=== PATIENT | female | born 1970 | race Caucasian/White ===

== ENCOUNTER → 2018-02-27 08:33 | Outpatient (CLI) | payer OTHER, SELFPAY ==
[2018-02-27 09:42] LABS: Add Manual Diff / Slide Review NO; Basophils Percent Auto 0.5 % (0-2); Eosinophils Percent Auto 1.7 % (2-4); Hematocrit 39.9 % (36-46); Hemoglobin 13.6 g/dL (12.0-16.0); Mean Corpuscular HGB Conc 34.1 % (30-36); Mean Corpuscular Hemoglobin 31.6 PG (26-34); Mean Corpuscular Volume 92.4 fL (80-100); Monocytes Percent Auto 7.2 % (3-14); Neutrophils Absolute Auto 3000 /uL (3000-5900); Neutrophils Percent Auto 69.6 % (50-75); Platelet Count 261 X10^3/uL (150-400); Red Blood Cell Count 4.32 X10^6/uL (4.0-5.2); White Blood Cell Count 4.3 X10^3/uL (4.5-11.0)
[2018-02-27 09:54] LABS: Alanine Aminotransferase 46 IU/L (9-52); Albumin 4.4 g/dL (3.5-5.0); Albumin Globulin Ratio 1.4 (1.0-2.8); Alkaline Phosphatase 58 U/L (38-126); Aspartate Aminotransferase 29 IU/L (14-36); BUN Creatinine Ratio 7.5 (6-22); Bilirubin Total 0.6 mg/dL (0.2-1.3); Blood Urea Nitrogen 6 mg/dL (7-17); Calcium 9.9 mg/dL (8.4-10.2); Carbon Dioxide 29 mmol/L (22-32); Chloride 103 mmol/L (98-107); Cholesterol 212 mg/dL (140-199); Estimated Glomerular Filt Rate > 60.0 mL/min (>60); Globulin 3.2 g/dL (1.7-4.1); Glucose 99 mg/dL (70-100); HDL Cholesterol 59 mg/dL (40-60); HEMOLYSIS < 15 (0-50); LDL Cholesterol Calculated 136 mg/dL (<100); Potassium 4.3 mmol/L (3.4-5.1); Sodium 142 mmol/L (137-145); Total Protein 7.6 g/dL (6.3-8.2); Triglycerides 86 mg/dL (35-150)
[2018-02-27 10:21] LABS: TSH w/ Reflex to FT4 1.39 uIU/mL (0.47-4.68)
[2018-03-03 20:37] LABS: Estrogen 392.6 pg/mL
== END ==
PROVIDERS: Family Provider Family Medicine; PCP Family Medicine; Visit Provider Family Medicine
DX: E03.9 Hypothyroidism, unspecified (principal); R61 Generalized hyperhidrosis
CPT/HCPCS: 36415; 80053; 80061; 82672; 84443; 85025

== ENCOUNTER → 2018-03-17 16:21 | Outpatient (CLI) | payer OTHER, SELFPAY ==
[2018-03-17 16:55] LABS: Appearance Urine UA CLEAR; Bilirubin Urine UA NEGATIVE (NEGATIVE); Color Urine UA YELLOW; Glucose Urine UA NEGATIVE (Normal); Ketones Urine UA NEGATIVE (NEGATIVE); Leukocyte Esterase Urine UA NEGATIVE (NEGATIVE); Nitrite Urine UA Negative (Negative); Occult Blood Urine UA TRACE-LYSED (Negative); Protein Urine UA NEGATIVE (Negative); Specific Gravity Urine UA <=1.005 (1.000-1.035); Urobilinogen Urine UA 0.2 E.U./dL (0.2); pH Urine UA 5.5 (4.5-8.0)
[2018-03-17 17:15] LABS: Add Manual Diff / Slide Review NO; Basophils Percent Auto 0.6 % (0-2); Eosinophils Percent Auto 1.8 % (2-4); Hematocrit 34.8 % (36-46); Hemoglobin 11.7 g/dL (12.0-16.0); Lymphocytes Percent Auto 21.2 % (25-40); Mean Corpuscular HGB Conc 33.7 % (30-36); Mean Corpuscular Hemoglobin 31.5 PG (26-34); Mean Corpuscular Volume 93.6 fL (80-100); Neutrophils Absolute Auto 4900 /uL (3000-5900); Neutrophils Percent Auto 70.4 % (50-75); Platelet Count 283 X10^3/uL (150-400); Red Blood Cell Count 3.72 X10^6/uL (4.0-5.2); Red Cell Distribution Width 13.2 % (11.6-14.8); White Blood Cell Count 6.9 X10^3/uL (4.5-11.0)
[2018-03-17 17:35] LABS: Alanine Aminotransferase 48 IU/L (9-52); Albumin 4.1 g/dL (3.5-5.0); Albumin Globulin Ratio 1.5 (1.0-2.8); Alkaline Phosphatase 70 U/L (38-126); Aspartate Aminotransferase 22 IU/L (14-36); Bilirubin Total 0.4 mg/dL (0.2-1.3); Blood Urea Nitrogen 8 mg/dL (7-17); Calcium 9.5 mg/dL (8.4-10.2); Carbon Dioxide 29 mmol/L (22-32); Chloride 103 mmol/L (98-107); Estimated Glomerular Filt Rate > 60.0 mL/min (>60); Globulin 2.8 g/dL (1.7-4.1); Glucose 84 mg/dL (70-100); HEMOLYSIS < 15 (0-50); Potassium 4.4 mmol/L (3.4-5.1); Sodium 143 mmol/L (137-145); Total Protein 6.9 g/dL (6.3-8.2)
[2018-03-17 18:01] LABS: Thyroid Stimulating Hormone 3.45 uIU/mL (0.47-4.68)
== END ==
PROVIDERS: Family Provider Family Medicine; PCP Family Medicine; Visit Provider Internal Medicine
DX: R60.0 Localized edema (principal)
CPT/HCPCS: 36415; 80053; 81003; 84443; 85025

== ENCOUNTER → 2018-03-24 16:29 | Outpatient (CLI) | payer OTHER, SELFPAY ==
[2018-03-24 16:44] LABS: Add Manual Diff / Slide Review NO; Basophils Percent Auto 1.2 % (0-2); Eosinophils Percent Auto 1.9 % (2-4); Hemoglobin 12.7 g/dL (12.0-16.0); Lymphocytes Percent Auto 24.7 % (25-40); Mean Corpuscular HGB Conc 33.4 % (30-36); Mean Corpuscular Hemoglobin 31.3 PG (26-34); Monocytes Percent Auto 6.1 % (3-14); Neutrophils Absolute Auto 4400 /uL (3000-5900); Neutrophils Percent Auto 66.1 % (50-75); Platelet Count 276 X10^3/uL (150-400); Red Blood Cell Count 4.05 X10^6/uL (4.0-5.2); Red Cell Distribution Width 13.2 % (11.6-14.8); White Blood Cell Count 6.6 X10^3/uL (4.5-11.0)
[2018-03-24 16:47] LABS: Reticulocyte Count, Percent 1.5 % (1.06-2.63)
[2018-03-24 17:29] LABS: HEMOLYSIS < 15 (0-50); Iron 53 ug/dL (37-170)
[2018-03-24 17:39] LABS: Percent Iron Saturation 12 % (15-50); Total Iron Binding Capacity 454 ug/dL (265-497); Transferrin 367 mg/dL (206-381)
[2018-03-24 18:05] LABS: Ferritin 22.6 ng/mL (6.27-137)
== END ==
PROVIDERS: Family Provider Family Medicine; PCP Family Medicine; Visit Provider Family Medicine
DX: D64.9 Anemia, unspecified (principal)
CPT/HCPCS: 36415; 82728; 83540; 83550; 85025; 85045

== ENCOUNTER → 2018-09-02 17:44 | Outpatient (CLI) | payer OTHER, SELFPAY ==
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
== END ==
PROVIDERS: Family Provider Family Medicine; PCP Student in an Organized Health Care Education/Training Program; Visit Provider Student in an Organized Health Care Education/Training Program
DX: M54.6 Pain in thoracic spine (principal); S39.92XA Unspecified injury of lower back, initial encounter; V89.2XXA Person injured in unspecified motor-vehicle accident, traffic, initial encounter
CPT/HCPCS: 72146

== ENCOUNTER → 2018-09-16 12:42 | Outpatient (CLI) | payer OTHER, SELFPAY | PROVIDERS: Family Provider Family Medicine; PCP Student in an Organized Health Care Education/Training Program; Visit Provider Registered Nurse | DX: R20.0 Anesthesia of skin (principal); R20.2 Paresthesia of skin | CPT/HCPCS: 95885; 95886; 95909 ==

== ENCOUNTER → 2018-10-13 11:36 | Outpatient (CLI) | payer OTHER, SELFPAY ==
--- NOTE | 2018-10-13 11:38 | DI.RAD.S_ITS ---
PROCEDURE: XR KNEE RT 3V INDICATIONS: Right knee pain TECHNIQUE: 3 views of the knee were acquired. COMPARISON: None. FINDINGS: Bones: No fractures or dislocations. No suspicious bony lesions. Degenerative spurring. Mild narrowing of medial and lateral joint spaces. Soft tissues: No joint effusion. Prepatellar soft tissue swelling IMPRESSION: Mild right knee joint degeneration Prepatellar soft tissue swelling Dictated by: Garrett Carolina M.D. on 10/13/2018 at 12:48 Approved by: Garrett Carolina M.D. on 10/13/2018 at 12:52
== END ==
PROVIDERS: PCP Student in an Organized Health Care Education/Training Program; Visit Provider Student in an Organized Health Care Education/Training Program
DX: M25.561 Pain in right knee (principal); M17.11 Unilateral primary osteoarthritis, right knee; M79.89 Other specified soft tissue disorders
CPT/HCPCS: 73562

== ENCOUNTER 2018-11-15 18:04 | Emergency (ER) | payer OTHER, SELFPAY ==
[2018-11-15 18:09] VITALS: BP 194/101; PULSE 95; RESP 20; TEMP 36.8; O2SAT 98; BMI 40.6
--- NOTE | 2018-11-15 18:28 | DI.RAD.S_ITS ---
PROCEDURE: XR CHEST 1V INDICATIONS: chest pain TECHNIQUE: One view of the chest was acquired. COMPARISON: [facility], , CHEST 1 VIEW, 10/24/2016, 17:43. FINDINGS: Surgical changes and devices: None. Lungs and pleura: Lungs are clear. No pleural effusions or pneumothorax. Mediastinum: Mediastinal contours appear normal. Heart size is normal. Bones and chest wall: No suspicious bony lesions. Overlying soft tissues appear unremarkable. IMPRESSION: No acute cardiopulmonary disease. Dictated by: Nhan Ware M.D. on 11/15/2018 at 19:43 Approved by: Nhan Ware M.D. on 11/15/2018 at 19:43
[2018-11-15 18:58] VITALS: BP 142/87; PULSE 72; RESP 11; O2SAT 95
[2018-11-15 18:58] LABS: Add Manual Diff / Slide Review NO; Basophils Absolute Auto 100 /uL (0-100); Basophils Percent Auto 0.6 % (0-2); Eosinophils Absolute Auto 100 /uL (0-450); Eosinophils Percent Auto 1.4 % (2-4); Hematocrit 36.8 % (36-46); Hemoglobin 12.4 g/dL (12.0-16.0); Lymphocytes Absolute Auto 1500 /uL (1100-4500); Lymphocytes Percent Auto 15.6 % (25-40); Mean Corpuscular HGB Conc 33.7 % (30-36); Mean Corpuscular Hemoglobin 31.3 PG (26-34); Mean Corpuscular Volume 92.9 fL (80-100); Monocytes Absolute Auto 500 /uL (0-900); Monocytes Percent Auto 4.9 % (3-14); Neutrophils Absolute Auto 7600 /uL (1500-7000); Neutrophils Percent Auto 77.5 % (50-75); Platelet Count 240 X10^3/uL (150-400); Red Blood Cell Count 3.96 X10^6/uL (4.0-5.2); Red Cell Distribution Width 13.4 % (11.6-14.8); White Blood Cell Count 9.8 X10^3/uL (4.5-11.0)
[2018-11-15 19:00] VITALS: BP 150/80; PULSE 71; RESP 12; O2SAT 94
[2018-11-15 19:13] LABS: INR 0.9 (0.9-1.3); Prothrombin Time 10.9 SECONDS (10.1-12.7)
[2018-11-15 19:16] LABS: PTT Partial Thromboplastin Tim 33 SECONDS (26.4-36.2)
[2018-11-15 19:17] LABS: Alanine Aminotransferase 29 IU/L (9-52); Albumin 4.2 g/dL (3.5-5.0); Albumin Globulin Ratio 1.4 (1.0-2.8); Alkaline Phosphatase 50 U/L (38-126); Aspartate Aminotransferase 28 IU/L (14-36); BUN Creatinine Ratio 12.9 (6-22); Bilirubin Total 0.3 mg/dL (0.2-1.3); Blood Urea Nitrogen 9 mg/dL (7-17); Calcium 8.9 mg/dL (8.4-10.2); Carbon Dioxide 26 mmol/L (22-32); Chloride 96 mmol/L (98-107); Creatine Kinase 122 U/L (30-135); Estimated Glomerular Filt Rate > 60.0 mL/min (>60); Globulin 2.9 g/dL (1.7-4.1); Glucose 95 mg/dL (70-100); Lipase 50 U/L (23-300); Sodium 131 mmol/L (137-145); Total Protein 7.1 g/dL (6.3-8.2)
[2018-11-15 19:27] LABS: Troponin I < 0.012 ng/mL (0.01-0.034)
[2018-11-15 19:30] VITALS: BP 151/85; PULSE 70; RESP 12; O2SAT 95
[2018-11-15 19:32] LABS: CKMB % Relative Index 1.2 % (1.5-5.0); Creatine Kinase MB 1.42 ng/mL (<2.37); HEMOLYSIS 37 (0-50)
--- NOTE | 2018-11-15 19:42 | ED.CHESTPAIN ---
HPI - Chest Pain General Chief Complaint: Chest Pain Stated Complaint: CHEST PAIN LOWER JAW IS THROVING Time Seen by Provider: 11/15/18 18:34 Source: patient Mode of arrival: ambulatory Limitations: no limitations History of Present Illness HPI narrative: Patient is a 48-year-old female who presents with chest discomfort. It started 20 min prior to arrival. She has been having some chest chest discomfort on and off throughout the week as it was resolved with Tums. However this pain radiated up into her chin and jaw area she was unable to get any Tums. It has now subsided after an hour and half in the emergency department. She denies any shortness of breath nausea vomiting or diaphoresis. His no known history of coronary artery disease. MD complaint: chest pain Onset (ago): minute(s) (20minutes prior to arrival) Duration: now resolved Onset: during rest and during exertion Pain location: substernal Severity: moderate Pain radiation: neck Relieving factors: nothing Exacerbating factors: nothing Related Data Previous Rx's Medication Instructions Recorded albuterol sulfate HFA 90 1 puff INHALATION QDAY #1 inh 02/19/18 mcg/actuation aerosol inhaler cetirizine 10 mg tablet 10 mg PO PRN #90 tab 02/19/18 escitalopram 20 mg tablet 20 mg PO QDAY #90 tab 02/19/18 estradiol 1 mg tablet 1 mg PO QDAY #90 tab 02/19/18 fluticasone 50 mcg/actuation nasal 1 spray INTRANASAL QDAY #3 bot 02/19/18 spray,suspension levothyroxine 88 mcg tablet 88 mcg PO Q DAY #90 tab 02/19/18 [flurandrenolide tape] See Rx Instructions TOPICAL SEE 04/19/18 INSTRUCTIONS #1 each metaxalone 800 mg tablet 800 mg PO TID #60 tab 04/20/18 hydroxyzine HCl 50 mg tablet 50 mg PO TID PRN #30 tab 08/09/18 gabapentin 300 mg capsule 600 mg PO TID #240 cap 10/01/18 meloxicam 15 mg tablet 15 mg PO QDAY #90 tab 10/01/18 trazodone 100 mg tablet 100 mg PO HS #90 tab 10/01/18 acetaminophen 300 mg-codeine 30 mg 2 tab PO Q8H PRN #180 tab 10/13/18 tablet amitriptyline 25 mg tablet 25 mg PO BEDTIME #30 tab 10/13/18 mometasone 0.1 % topical cream 1 applictn TOP DAILY PRN #45 gram 10/13/18 Allergies Allergy/AdvReac Type Severity Reaction Status Date / Time adhesive tape [ADHESIVE TAPE] Allergy Mild rash Verified 10/13/18 10:47 Review of Systems Review of Systems GENERAL: Denies chills, fatigue, malaise, fever, sweats, travel HEENT: Denies sinus pain, ear pain, sore throat, difficulty swallowing, neck pain RESPIRATORY: Denies dyspnea, cough, wheezing, hemoptysis, sputum. CARDIOVASCULAR: Denies chest pain, palpitations, orthopnea, edema GASTROINTESTINAL: Denies nausea, vomiting, abdominal pain, diarrhea, constipation, melena. : Denies dysuria, frequency, incontinence, hematuria, urinary retention, flank pain. MUSCULOSKELETAL: Denies weakness, joint pain, or bony pain SKIN: No rash, no erythema, no pruritus NEUROLOGIC: Denies weakness, dizziness, headache, numbness, change in speech, confusion PSYCHIATRIC: No concerning psychosocial issues. 12 point review of systems is negative except for those stated above and HPI [facility] Medical History Acne (Chronic) Anxiety (Chronic) Asthma (Chronic) Chronic back pain (Chronic) Chronic headaches (Chronic) Depression (Chronic) Fibromyalgia (Chronic 1992) Hayfever (Chronic) Hyperthyroidism (Chronic 2002) IBS (irritable bowel syndrome) (Chronic 2006) Anemia (Resolved 1986) Cataract (Resolved 2008) Chicken pox (Resolved 1979) Surgical History Anesthesia complication (Resolved) History of cataract surgery (Resolved 2008) History of oophorectomy (Resolved 10/2014) History of surgical removal of ganglion cyst (Resolved ~2001) History of surgical removal of ganglion cyst (Resolved ~1996) Status post laparoscopic supracervical hysterectomy (Resolved 04/08/11) Status post laparoscopic supracervical hysterectomy (Resolved 11/05/15) Family History Father Age: 89 Diabetes mellitus Hypertension Mother Age: 83 Hypertension Sister Age: 62 Thyroid cancer Social History Smoking Status: Current every day smoker Family History Father Age: 89 Diabetes mellitus Hypertension Mother Age: 83 Hypertension Sister Age: 62 Thyroid cancer Social History Smoking Status: Current every day smoker Exam Initial Vital Signs Initial Vital Signs: Vital Signs Temperature 98.3 F 11/15/18 18:09 Pulse Rate 95 H 11/15/18 18:09 Respiratory Rate 20 11/15/18 18:09 Blood Pressure 194/101 H 11/15/18 18:09 Pulse Oximetry 98 11/15/18 18:09 GENERAL: alert well-appearing female without distress HEENT: Head atraumatic,EOMI, pupils reactive, No JVD CARDIOVASCULAR: Regular rate and rhythm without murmurs, rubs or gallops. RESPIRATORY: Breath sounds equal bilaterally, no wheezes rales or rhonchi. ABDOMEN: Soft, nontender. Normoactive bowel sounds all 4 quadrants. No guarding or rebound. [RECTAL:] [Hemoccult-positive, no hemorrhoids, nontender] : No CVA tenderness EXTREMITIES: Normal range of motion, no clubbing or edema. Neurovascularly intact NEUROLOGICAL: Alert and oriented x4.Normal gait and speech. SKIN: Warm, dry, no laceration, no petechiae, no rashes or lesions. Scores HEART Score Heart Score history: Slightly Suspicious Heart Score EKG: Normal Heart Score Age: 45-64 years old Heart Score risk factors: No known risk factors Heart Score troponin: < or = to normal limit Heart Score Total: 1 Course Orders Ordered: ED Orders 11/15/18 18:13 EKG-12 Lead Routine 11/15/18 18:28 XR chest 1V Stat 11/15/18 18:45 Complete Blood Count AUTO DIFF Stat Comprehensive Metabolic Panel Stat Lipase Stat Partial Thromboplastin Time Stat Prothrombin Time INR Stat Troponin & CK Cardiac Panel Stat 11/15/18 19:51 EKG-12 Lead Stat 11/15/18 19:58 Troponin I Stat 11/15/18 20:50 Troponin I Routine Discontinued Medications Aspirin (Aspirin Chew) 324 mg PO NOW ONE Stop: 11/15/18 20:33 Last Admin: 11/15/18 20:40 Dose: 324 mg Vital Signs - 8 hr 11/15/18 18:09 11/15/18 18:58 02/18/19 19:00 Temperature 98.3 F Pulse Rate 95 H 72 71 Respiratory Rate 20 11 L 12 Blood Pressure 194/101 H Blood Pressure [Left Arm] 142/87 H 150/80 H Pulse Oximetry 98 95 94 11/15/18 19:30 11/15/18 20:20 11/15/18 21:50 Temperature Pulse Rate 70 76 82 Respiratory Rate 12 15 18 Blood Pressure 134/72 Blood Pressure [Left Arm] 151/85 H 133/67 Pulse Oximetry 95 96 99 MDM - Chest Pain Lab Data Attestation: I reviewed the patient's lab results. Result diagrams: 11/15/18 18:45 11/15/18 18:45 Lab Results 11/15/18 11/15/18 11/15/18 Range/Units 18:45 18:45 18:45 WBC 9.8 (4.5-11.0) X10^3/uL RBC 3.96 L (4.0-5.2) X10^6/uL Hgb 12.4 (12.0-16.0) g/dL Hct 36.8 (36-46) % MCV 92.9 (80-100) fL MCH 31.3 (26-34) PG MCHC 33.7 (30-36) % RDW 13.4 (11.6-14.8) % Plt Count 240 (150-400) X10^3/uL Neut % (Auto) 77.5 H (50-75) % Lymph % (Auto) 15.6 L (25-40) % [place] % (Auto) 4.9 (3-14) % Eos % (Auto) 1.4 L (2-4) % Baso % (Auto) 0.6 (0-2) % Neut # (Auto) 7600 H (2691-1414) /uL Lymph # (Auto) 1500 (8118-0692) /uL [place] # (Auto) 500 (0-900) /uL Eos # (Auto) 100 (0-450) /uL Baso # (Auto) 100 (0-100) /uL PT 10.9 (10.1-12.7) SECONDS INR 0.9 (0.9-1.3) APTT 33 (26.4-36.2) SECONDS Sodium 131 L (137-145) mmol/L Potassium 4.0 (3.4-5.1) mmol/L Chloride 96 L (98-107) mmol/L Carbon Dioxide 26 (22-32) mmol/L BUN 9 (7-17) mg/dL Creatinine 0.70 (0.52-1.04) mg/dL Estimated GFR > 60.0 (>60) mL/min BUN/Creatinine Ratio 12.9 (6-22) Glucose 95 (70-100) mg/dL Calcium 8.9 (8.4-10.2) mg/dL Total Bilirubin 0.3 (0.2-1.3) mg/dL AST 28 (14-36) IU/L ALT 29 (9-52) IU/L Alkaline Phosphatase 50 (38-126) U/L Total Creatine Kinase 122 (30-135) U/L CK-MB (CK-2) 1.42 (<2.37) ng/mL CK-MB (CK-2) Rel Index 1.2 L (1.5-5.0) % Troponin I < 0.012 (0.01-0.034) ng/mL Total Protein 7.1 (6.3-8.2) g/dL Albumin 4.2 (3.5-5.0) g/dL Globulin 2.9 (1.7-4.1) g/dL Albumin/Globulin Ratio 1.4 (1.0-2.8) Lipase 50 (23-300) U/L 11/15/18 11/15/18 Range/Units 19:58 20:50 WBC (4.5-11.0) X10^3/uL RBC (4.0-5.2) X10^6/uL Hgb (12.0-16.0) g/dL Hct (36-46) % MCV (80-100) fL MCH (26-34) PG MCHC (30-36) % RDW (11.6-14.8) % Plt Count (150-400) X10^3/uL Neut % (Auto) (50-75) % Lymph % (Auto) (25-40) % [place] % (Auto) (3-14) % Eos % (Auto) (2-4) % Baso % (Auto) (0-2) % Neut # (Auto) (4666-1007) /uL Lymph # (Auto) (2005-6020) /uL [place] # (Auto) (0-900) /uL Eos # (Auto) (0-450) /uL Baso # (Auto) (0-100) /uL PT (10.1-12.7) SECONDS INR (0.9-1.3) APTT (26.4-36.2) SECONDS Sodium (137-145) mmol/L Potassium (3.4-5.1) mmol/L Chloride (98-107) mmol/L Carbon Dioxide (22-32) mmol/L BUN (7-17) mg/dL Creatinine (0.52-1.04) mg/dL Estimated GFR (>60) mL/min BUN/Creatinine Ratio (6-22) Glucose (70-100) mg/dL Calcium (8.4-10.2) mg/dL Total Bilirubin (0.2-1.3) mg/dL AST (14-36) IU/L ALT (9-52) IU/L Alkaline Phosphatase (38-126) U/L Total Creatine Kinase (30-135) U/L CK-MB (CK-2) (<2.37) ng/mL CK-MB (CK-2) Rel Index (1.5-5.0) % Troponin I < 0.012 < 0.012 (0.01-0.034) ng/mL Total Protein (6.3-8.2) g/dL Albumin (3.5-5.0) g/dL Globulin (1.7-4.1) g/dL Albumin/Globulin Ratio (1.0-2.8) Lipase (23-300) U/L ECG Data Attestation: I personally reviewed and interpreted this ECG as follows: Prior ECG tracings: available for review Interpretation: EKG 1. Normal sinus rhythm rate [address] changes. [place] interval 123. EKG 2. Sinus rhythm rate a 69 year interval [address] changes similar to prior MDM Narrative Medical decision making narrative: patient has been relatively chest pain-free since her arrival in the ED. Overall feeling better. Patient has had acid reflux symptoms throughout the week she was unable to take any times. It is possible this is acid reflux. Her heart score is low. I did discuss with her that she may still require further outpatient workup such as stress test and echocardiogram. Both she and her understand and agree to return if chest pain changes or worsens. Discharge Plan Departure Patient Disposition: Home Clinical Impression: Atypical chest pain Discharge Date/Time: 11/15/18 21:51 Interventions: ED Discharge Assessment Last Done: 11/15/18 21:50 Instructions: DI for Atypical Chest Pain Activity Restrictions/Additional Instructions: *You have been diagnosed with atypical chest *What to do: you may require further cardiac testing such as a stress test and echocardiogram. His please discuss this with her primary care provider. However today show blood work EKGs in x-ray are reassuring. *Continue to take medications as directed Aspirin 81 mg daily *Follow up with your primary care provider in 2-3 days *Return to ER if you should have worsening chest pain, shortness of breath or any new, worsening or concerning symptoms Prescriptions: No Action metaxalone [Skelaxin] 800 mg tablet 800 mg PO TID Qty: 60 RF: 3 hydroxyzine HCl 50 mg tablet 50 mg PO TID PRN (Reason: itching) Qty: 30 RF: 5 amitriptyline 25 mg tablet 25 mg PO BEDTIME Qty: 30 RF: 0 acetaminophen-codeine [Tylenol-Codeine #3] 300-30 mg tablet 2 tab PO Q8H PRN (Reason: pain) Qty: 180 RF: 2 mometasone 0.1 % cream 1 applictn TOP DAILY PRN (Reason: rash) Qty: 45 RF: 1 albuterol sulfate [Proventil HFA] 90 mcg/actuation HFA aerosol inhaler 1 puff INHALATION QDAY Qty: 1 RF: 6 cetirizine 10 mg tablet 10 mg PO PRN Qty: 90 RF: 3 escitalopram oxalate 20 mg tablet 20 mg PO QDAY Qty: 90 RF: 3 estradiol 1 mg tablet 1 mg PO QDAY Qty: 90 RF: 3 fluticasone [Flonase Allergy Relief] 50 mcg/actuation spray,suspension 1 spray Intranasal QDAY Qty: 3 RF: 3 levothyroxine 88 mcg tablet 88 mcg PO Q DAY Qty: 90 RF: 3 [flurandrenolide tape] See Rx Instructions Topical SEE INSTRUCTIONS Qty: 1 RF: 1 gabapentin 300 mg capsule 600 mg PO TID Qty: 240 RF: 5 trazodone 100 mg tablet 100 mg PO HS Qty: 90 RF: 3 meloxicam 15 mg tablet 15 mg PO QDAY Qty: 90 RF: 3 Referrals: Octavio Patrick MD [Primary Care Provider] -
--- NOTE | 2018-11-15 19:51 | ED_ITS ---
HPI - Chest Pain General Chief Complaint: Chest Pain Stated Complaint: CHEST PAIN LOWER JAW IS THROVING Time Seen by Provider: 11/15/18 18:34 Source: patient Mode of arrival: ambulatory Limitations: no limitations History of Present Illness HPI narrative: Patient is a 48-year-old female who presents with chest dis comfort. It started 20 min prior to arrival. She has been having some chest chest discomfort on and off throughout the week as it was resolved with Tums. However this pain radiated up into her chin and jaw area she was unable to get any Tums. It has now subsided after an hour and half in the emergency department. She denies any shortness of breath nausea vomiting or diaphoresis. His no known history of coronary artery disease. MD complaint: chest pain Onset (ago): minute(s) (20minutes prior to arrival) Duration: now resolved Onset: during rest and during exertion Pain location: substernal Severity: moderate Pain radiation: neck Relieving factors: nothing Exacerbating factors: nothing Related Data Previous Rx's Medication Instructions Recorded albuterol sulfate HFA 90 1 puff INHALATION QDAY #1 inh 02/19/18 mcg/actuation aerosol inhaler cetirizine 10 mg tablet 10 mg PO PRN #90 tab 02/19/18 escitalopram 20 mg tablet 20 mg PO QDAY #90 tab 02/19/18 estradiol 1 mg tablet 1 mg PO QDAY #90 tab 02/19/18 fluticasone 50 mcg/actuation nasal 1 spray INTRANASAL QDAY #3 bot 02/19/18 spray,suspension levothyroxine 88 mcg tablet 88 mcg PO Q DAY #90 tab 02/19/18 [flurandrenolide tape] See Rx Instructions TOPICAL SEE 04/19/18 INSTRUCTIONS #1 each metaxalone 800 mg tablet 800 mg PO TID #60 tab 04/20/18 hydroxyzine HCl 50 mg tablet 50 mg PO TID PRN #30 tab 08/09/18 gabapentin 300 mg capsule 600 mg PO TID #240 cap 10/01/18 meloxicam 15 mg tablet 15 mg PO QDAY #90 tab 10/01/18 trazodone 100 mg tablet 100 mg PO HS #90 tab 10/01/18 acetaminophen 300 mg-codeine 30 mg 2 tab PO Q8H PRN #180 tab 10/13/18 tablet amitriptyline 25 mg tablet 25 mg PO BEDTIME #30 tab 10/13/18 mometasone 0.1 % topical cream 1 applictn TOP DAILY PRN #45 gram 10/13/18 Allergies Allergy/AdvReac Type Severity Reaction Status Date / Time adhesive tape [ADHESIVE TAPE] Allergy Mild rash Verified 10/13/18 10:47 Review of Systems Review of Systems GENERAL: Denies chills, fatigue, malaise, fever, sweats, travel HEENT: Denies sinus pain, ear pain, sore throat, difficulty swallowing, neck gregory n RESPIRATORY: Denies dyspnea, cough, wheezing, hemoptysis, sputum. CARDIOVASCULAR: Denies chest pain, palpitations, orthopnea, edema GASTROINTESTINAL: Denies nausea, vomiting, abdominal pain, diarrhea, constipation, melena. : Denies dysuria, frequency, incontinence, hematuria, urinary retention, flank pain. MUSCULOSKELETAL: Denies weakness, joint pain, or bony pain SKIN: No rash, no erythema, no pruritus NEUROLOGIC: Denies weakness, dizziness, headache, numbness, change in speech, confusion PSYCHIATRIC: No concerning psychosocial issues. 12 point review of systems is negative except for those stated above and HPI [facility] Medical History Acne (Chronic) Anxiety (Chronic) Asthma (Chronic) Chronic back pain (Chronic) Chronic headaches (Chronic) Depression (Chronic) Fibromyalgia (Chronic 1992) Hayfever (Chronic) Hyperthyroidism (Chronic 2002) IBS (irritable bowel syndrome) (Chronic 2006) Anemia (Resolved 1986) Cataract (Resolved 2008) Chicken pox (Resolved 1979) Surgical History Anesthesia complication (Resolved) History of cataract surgery (Resolved 2008) History of oophorectomy (Resolved 10/2014) History of surgical removal of ganglion cyst (Resolved ~2001) History of surgical removal of ganglion cyst (Resolved ~1996) Status post laparoscopic supracervical hysterectomy (Resolved 04/08/11) Status post laparoscopic supracervical hysterectomy (Resolved 11/05/15) Family History Father Age: 89 Diabetes mellitus Hypertension Mother Age: 83 Hypertension Sister Age: 62 Thyroid cancer Social History Smoking Status: Current every day smoker Family History Father Age: 89 Diabetes mellitus Hypertension Mother Age: 83 Hypertension Sister Age: 62 Thyroid cancer Social History Smoking Status: Current every day smoker Exam Initial Vital Signs Initial Vital Signs: Vital Signs Temperature 98.3 F 11/15/18 18:09 Pulse Rate 95 H 11/15/18 18:09 Respiratory Rate 20 11/15/18 18:09 Blood Pressure 194/101 H 11/15/18 18:09 Pulse Oximetry 98 11/15/18 18:09 GENERAL: alert well-appearing female without distress HEENT: Head atraumatic,EOMI, pupils reactive, No JVD CARDIOVASCULAR: Regular rate and rhythm without murmurs, rubs or gallops. RESPIRATORY: Breath sounds equal bilaterally, no wheezes rales or rhonchi. ABDOMEN: Soft, nontender. Normoactive bowel sounds all 4 quadrants. No guarding or rebound. [RECTAL:] [Hemoccult-positive, no hemorrhoids, nontender] : No CVA tenderness EXTREMITIES: Normal range of motion, no clubbing or edema. Neurovascularly intact NEUROLOGICAL: Alert and oriented x4.Normal gait and speech. SKIN: Warm, dry, no laceration, no petechiae, no rashes or lesions. Scores HEART Score Heart Score history: Slightly Suspicious Heart Score EKG: Normal Heart Score Age: 45-64 years old Heart Score risk factors: No known risk factors Heart Score troponin: < or = to normal limit Heart Score Total: 1 Course Orders Ordered: ED Orders 11/15/18 18:13 EKG-12 Lead Routine 11/15/18 18:28 XR chest 1V Stat 11/15/18 18:45 Complete Blood Count AUTO DIFF Stat Comprehensive Metabolic Panel Stat Lipase Stat Partial Thromboplastin Time Stat Prothrombin Time INR Stat Troponin & CK Cardiac Panel Stat 11/15/18 19:51 EKG-12 Lead Stat 11/15/18 19:58 Troponin I Stat 11/15/18 20:50 Troponin I Routine Discontinued Medications Aspirin (Aspirin Chew) 324 mg PO NOW ONE Stop: 11/15/18 20:33 Last Admin: 11/15/18 20:40 Dose: 324 mg Vital Signs - 8 hr 11/15/18 18:09 11/15/18 18:58 11/15/18 19:00 Temperature 98.3 F Pulse Rate 95 H 72 71 Respiratory Rate 20 11 L 12 Blood Pressure 194/101 H Blood Pressure [Left Arm] 142/87 H 150/80 H Pulse Oximetry 98 95 94 11/15/18 19:30 11/15/18 20:20 11/15/18 21:50 Temperature Pulse Rate 70 76 82 Respiratory Rate 12 15 18 Blood Pressure 134/72 Blood Pressure [Left Arm] 151/85 H 133/67 Pulse Oximetry 95 96 99 MDM - Chest Pain Lab Data Attestation: I reviewed the patient's lab results. Result diagrams: 11/15/18 18:45 11/15/18 18:45 Lab Results 11/15/18 11/15/18 11/15/18 Range/Units 18:45 18:45 18:45 WBC 9.8 (4.5-11.0) X10^3/uL RBC 3.96 L (4.0-5.2) X10^6/uL Hgb 12.4 (12.0-16.0) g/dL Hct 36.8 (36-46) % MCV 92.9 (80-100) fL MCH 31.3 (26-34) PG MCHC 33.7 (30-36) % RDW 13.4 (11.6-14.8) % Plt Count 240 (150-400) X10^3/uL Neut % (Auto) 77.5 H (50-75) % Lymph % (Auto) 15.6 L (25-40) % [place] % (Auto) 4.9 (3-14) % Eos % (Auto) 1.4 L (2-4) % Baso % (Auto) 0.6 (0-2) % Neut # (Auto) 7600 H (7471-2947) /uL Lymph # (Auto) 1500 (7510-0408) /uL [place] # (Auto) 500 (0-900) /uL Eos # (Auto) 100 (0-450) /uL Baso # (Auto) 100 (0-100) /uL PT 10.9 (10.1-12.7) SECONDS INR 0.9 (0.9-1.3) APTT 33 (26.4-36.2) SECONDS Sodium 131 L (137-145) mmol/L Potassium 4.0 (3.4-5.1) mmol/L Chloride 96 L (98-107) mmol/L Carbon Dioxide 26 (22-32) mmol/L BUN 9 (7-17) mg/dL Creatinine 0.70 (0.52-1.04) mg/dL Estimated GFR > 60.0 (>60) mL/min BUN/Creatinine Ratio 12.9 (6-22) Glucose 95 (70-100) mg/dL Calcium 8.9 (8.4-10.2) mg/dL Total Bilirubin 0.3 (0.2-1.3) mg/dL AST 28 (14-36) IU/L ALT 29 (9-52) IU/L Alkaline Phosphatase 50 (38-126) U/L Total Creatine Kinase 122 (30-135) U/L CK-MB (CK-2) 1.42 (<2.37) ng/mL CK-MB (CK-2) Rel Index 1.2 L (1.5-5.0) % Troponin I < 0.012 (0.01-0.034) ng/mL Total Protein 7.1 (6.3-8.2) g/dL Albumin 4.2 (3.5-5.0) g/dL Globulin 2.9 (1.7-4.1) g/dL Albumin/Globulin Ratio 1.4 (1.0-2.8) Lipase 50 (23-300) U/L 11/15/18 11/15/18 Range/Units 19:58 20:50 WBC (4.5-11.0) X10^3/uL RBC (4.0-5.2) X10^6/uL Hgb (12.0-16.0) g/dL Hct (36-46) % MCV (80-100) fL MCH (26-34) PG MCHC (30-36) % RDW (11.6-14.8) % Plt Count (150-400) X10^3/uL Neut % (Auto) (50-75) % Lymph % (Auto) (25-40) % [place] % (Auto) (3-14) % Eos % (Auto) (2-4) % Baso % (Auto) (0-2) % Neut # (Auto) (8129-2225) /uL Lymph # (Auto) (0233-4366) /uL [place] # (Auto) (0-900) /uL Eos # (Auto) (0-450) /uL Baso # (Auto) (0-100) /uL PT (10.1-12.7) SECONDS INR (0.9-1.3) APTT (26.4-36.2) SECONDS Sodium (137-145) mmol/L Potassium (3.4-5.1) mmol/L Chloride (98-107) mmol/L Carbon Dioxide (22-32) mmol/L BUN (7-17) mg/dL Creatinine (0.52-1.04) mg/dL Estimated GFR (>60) mL/min BUN/Creatinine Ratio (6-22) Glucose (70-100) mg/dL Calcium (8.4-10.2) mg/dL Total Bilirubin (0.2-1.3) mg/dL AST (14-36) IU/L ALT (9-52) IU/L Alkaline Phosphatase (38-126) U/L Total Creatine Kinase (30-135) U/L CK-MB (CK-2) (<2.37) ng/mL CK-MB (CK-2) Rel Index (1.5-5.0) % Troponin I < 0.012 < 0.012 (0.01-0.034) ng/mL Total Protein (6.3-8.2) g/dL Albumin (3.5-5.0) g/dL Globulin (1.7-4.1) g/dL Albumin/Globulin Ratio (1.0-2.8) Lipase (23-300) U/L ECG Data Attestation: I personally reviewed and interpreted this ECG as follows: Prior ECG tracings: available for review Interpretation: EKG 1. Normal sinus rhythm rate [address] changes. AR interval 123. EKG 2. Sinus rhythm rate a 69 year interval [address] changes similar to prior MDM Narrative Medical decision making narrative: patient has been relatively chest pain-free since her arrival in the ED. Overall feeling better. Patient has had acid reflux symptoms throughout the week she was unable to take any times. It is possible this is acid reflux. Her heart score is low. I did discuss with her that she may still require further outpatient workup such as stress test and echocardiogram. Both she and her understand and agree to return if chest pain changes or worsens. Discharge Plan Departure Patient Disposition: Home Clinical Impression: Atypical chest pain Discharge Date/Time: 11/15/18 21:51 Interventions: ED Discharge Assessment Last Done: 11/15/18 21:50 Instructions: DI for Atypical Chest Pain Activity Restrictions/Additional Instructions: *You have been diagnosed with atypical chest *What to do: you may require further cardiac testing such as a stress test and echocardiogram. His please discuss this with her primary care provider. However today show blood work EKGs in x-ray are reassuring. *Continue to take medications as directed Aspirin 81 mg daily *Follow up with your primary care provider in 2-3 days *Return to ER if you should have worsening chest pain, shortness of breath or any new, worsening or concerning symptoms Prescriptions: No Action metaxalone [Skelaxin] 800 mg tablet 800 mg PO TID Qty: 60 RF: 3 hydroxyzine HCl 50 mg tablet 50 mg PO TID PRN (Reason: itching) Qty: 30 RF: 5 amitriptyline 25 mg tablet 25 mg PO BEDTIME Qty: 30 RF: 0 acetaminophen-codeine [Tylenol-Codeine #3] 300-30 mg tablet 2 tab PO Q8H PRN (Reason: pain) Qty: 180 RF: 2 mometasone 0.1 % cream 1 applictn TOP DAILY PRN (Reason: rash) Qty: 45 RF: 1 albuterol sulfate [Proventil HFA] 90 mcg/actuation HFA aerosol inhaler 1 puff INHALATION QDAY Qty: 1 RF: 6 cetirizine 10 mg tablet 10 mg PO PRN Qty: 90 RF: 3 escitalopram oxalate 20 mg tablet 20 mg PO QDAY Qty: 90 RF: 3 estradiol 1 mg tablet 1 mg PO QDAY Qty: 90 RF: 3 fluticasone [Flonase Allergy Relief] 50 mcg/actuation spray,suspension 1 spray Intranasal QDAY Qty: 3 RF: 3 levothyroxine 88 mcg tablet 88 mcg PO Q DAY Qty: 90 RF: 3 [flurandrenolide tape] See Rx Instructions Topical SEE INSTRUCTIONS Qty: 1 RF: 1 gabapentin 300 mg capsule 600 mg PO TID Qty: 240 RF: 5 trazodone 100 mg tablet 100 mg PO HS Qty: 90 RF: 3 meloxicam 15 mg tablet 15 mg PO QDAY Qty: 90 RF: 3 Referrals: Octavio Patrick MD [Primary Care Provider] -
[2018-11-15 20:20] VITALS: BP 133/67; PULSE 76; RESP 15; O2SAT 96
[2018-11-15 20:27] LABS: Troponin I < 0.012 ng/mL (0.01-0.034)
[2018-11-15] MEDS: ASPIRIN 81 MG TAB 324 MG PO (20:40)
[2018-11-15 21:28] LABS: Troponin I < 0.012 ng/mL (0.01-0.034)
[2018-11-15 21:50] VITALS: BP 134/72; PULSE 82; RESP 18; O2SAT 99
== END 2018-11-15 21:51 | disposition home or self-care (01) ==
PROVIDERS: Emergency Provider Emergency Medicine; Family Provider Family Medicine; PCP Student in an Organized Health Care Education/Training Program
DX: R07.89 Other chest pain (principal)
CPT/HCPCS: 36591; 71045; 80053; 82550; 82553; 83690; 84484; 85025; 85610; 85730; 93005; 99283; 99285

== ENCOUNTER → 2019-04-29 07:19 | Outpatient (CLI) | payer OTHER, SELFPAY ==
[2019-04-29 08:12] LABS: Alanine Aminotransferase 21 IU/L (9-52); Albumin 4.2 g/dL (3.5-5.0); Albumin Globulin Ratio 1.3 (1.0-2.8); Alkaline Phosphatase 55 U/L (38-126); Aspartate Aminotransferase 23 IU/L (14-36); BUN Creatinine Ratio 12.5 (6-22); Bilirubin Total 0.3 mg/dL (0.2-1.3); Blood Urea Nitrogen 10 mg/dL (7-17); Calcium 9.6 mg/dL (8.4-10.2); Carbon Dioxide 30 mmol/L (22-32); Chloride 105 mmol/L (98-107); Cholesterol 203 mg/dL (140-199); Estimated Glomerular Filt Rate > 60.0 mL/min (>60); Globulin 3.2 g/dL (1.7-4.1); Glucose 98 mg/dL (70-100); HDL Cholesterol 46 mg/dL (40-60); HEMOLYSIS < 15 (0-50); LDL Cholesterol Calculated 137 mg/dL (<100); Potassium 4.4 mmol/L (3.4-5.1); Sodium 140 mmol/L (137-145); Total Protein 7.4 g/dL (6.3-8.2); Triglycerides 98 mg/dL (35-150)
[2019-04-29 08:46] LABS: Thyroid Stimulating Hormone 1.73 uIU/mL (0.47-4.68)
[2019-05-03 09:13] LABS: Estrogen 335.9 pg/mL
== END ==
PROVIDERS: Physician Assistant; PCP Student in an Organized Health Care Education/Training Program; Visit Provider Student in an Organized Health Care Education/Training Program
DX: E03.9 Hypothyroidism, unspecified (principal); E78.9 Disorder of lipoprotein metabolism, unspecified; Z13.6 Encounter for screening for cardiovascular disorders; R61 Generalized hyperhidrosis
CPT/HCPCS: 36415; 80053; 80061; 82672; 84443

== ENCOUNTER → 2019-05-20 14:08 | Outpatient (CLI) | payer OTHER, SELFPAY ==
--- NOTE | 2019-05-20 14:11 | DI.MG.S_ITS ---
BILATERAL DIGITAL SCREENING MAMMOGRAM 3D/2D WITH CAD: 05/20/2019 CLINICAL: Routine screening. Comparison is made to exams dated: 06/12/2017 mammogram and 11/08/2010 mammogram - [facility]. The tissue of both breasts is heterogeneously dense. This may lower the sensitivity of mammography. Current study was also evaluated with a Computer Aided Detection (CAD) system. There are new grouped fine calcifications in the left breast at 11 o'clock posterior depth. No other significant masses, calcifications, or other findings are seen in either breast. IMPRESSION: INCOMPLETE: NEEDS ADDITIONAL IMAGING EVALUATION The new grouped fine calcifications in the left breast are indeterminate. Additional views are recommended. This exam was interpreted at Station ID: [id number]. NOTE: For mammograms, a report in lay terms will be sent to the patient. Approximately 15% of breast malignancies will not be visualized mammographically. In the management of a palpable breast mass, a negative mammogram must not discourage biopsy of a clinically suspicious lesion. Electronically Signed By: Danelle osullivan/ileana:05/20/2019 15:22:14 letter sent: Additional Imaging Needed ACR BI-RADS Category 0: Incomplete [id number]
== END ==
PROVIDERS: PCP Student in an Organized Health Care Education/Training Program; Visit Provider Physician Assistant
DX: Z12.39 Encounter for other screening for malignant neoplasm of breast (principal); E89.40 Asymptomatic postprocedural ovarian failure; Z78.0 Asymptomatic menopausal state
CPT/HCPCS: 77063; 77067; 77080

== ENCOUNTER → 2019-06-02 10:04 | Outpatient (CLI) | payer OTHER, SELFPAY ==
--- NOTE | 2019-06-02 | DI.MG.S_ITS ---
UNILATERAL LEFT DIGITAL DIAGNOSTIC MAMMOGRAM 3D/2D WITH ADDITIONAL VIEWS: 06/02/2019 CLINICAL: Additional evaluation requested from prior study. Comparison is made to exams dated: 05/20/2019 mammogram, 06/12/2017 mammogram, and 11/08/2010 mammogram - [facility]. The tissue of left breast is heterogeneously dense. This may lower the sensitivity of mammography. There are regional fine punctate calcifications in the left breast at 10 o'clock middle depth. No other significant masses or calcifications are seen in the breast. IMPRESSION: PROBABLY BENIGN The regional fine punctate calcifications in the left breast are probably benign. A follow-up mammogram in 6 months is recommended. A follow-up mammogram in 6 months is recommended to demonstrate stability. This exam was interpreted at Station ID: [id number]. NOTE: For mammograms, a report in lay terms will be sent to the patient. Approximately 15% of breast malignancies will not be visualized mammographically. In the management of a palpable breast mass, a negative mammogram must not discourage biopsy of a clinically suspicious lesion. Electronically Signed By: Rubén paulino/ileana:06/02/2019 10:47:29 letter sent: Followup Recommended ACR BI-RADS Category 3: Probably benign [id number]
== END ==
PROVIDERS: PCP Student in an Organized Health Care Education/Training Program; Visit Provider Physician Assistant
DX: R92.1 Mammographic calcification found on diagnostic imaging of breast (principal)
CPT/HCPCS: 77065; G0279

== ENCOUNTER → 2019-08-16 08:30 | Outpatient (CLI) | payer OTHER, SELFPAY ==
--- NOTE | 2019-08-16 08:32 | DI.RAD.S_ITS ---
PROCEDURE: FL BARIUM SWALLOW INDICATIONS: Sensation of lower esophagus dysmotility COMPARISON: None. FINDINGS: Function: There is normal esophageal peristalsis. No elicited gastroesophageal reflux. There is delayed transit of a calibrated barium tablet through the esophagus into the stomach, persisting at the distal esophageal margin for over 5 minutes. Morphology: Air-contrast images demonstrate normal mucosal morphology and there is a mild focal these narrowing in the distal esophagus noted over the course of the study. Single contrast views show no esophageal strictures, extrinsic mass effects, or diverticula. Limited images of the stomach demonstrate normal appearance. IMPRESSION: There is a mild fixed narrowing of the distal esophagus noted over the course of the examination in this patient with episodic reports that food impacted within the distal esophagus. A 13 mm calibrated barium tablet persisted at that site for over 5 minutes. No esophageal irregularity is seen at this site but given this finding and the current symptomatology endoscopic assessment is recommended. Dictated by: Cecil Aleman M.D. on 08/16/2019 at 10:16 Approved by: Cecil Aleman M.D. on 08/16/2019 at 10:18
== END ==
PROVIDERS: PCP Student in an Organized Health Care Education/Training Program; Visit Provider Student in an Organized Health Care Education/Training Program
DX: K22.4 Dyskinesia of esophagus (principal); K22.2 Esophageal obstruction
CPT/HCPCS: 74220

== ENCOUNTER → 2020-02-21 12:23 | Outpatient (CLI) | payer OTHER, SELFPAY ==
--- NOTE | 2020-02-21 12:24 | DI.MG.S_ITS ---
UNILATERAL LEFT DIGITAL DIAGNOSTIC MAMMOGRAM 3D/2D SHORT-TERM FOLLOW-UP: 02/21/2020 CLINICAL: Patient returns for a 6 month follow up of the left breast. Comparison is made to exams dated: 06/02/2019 mammogram, 05/20/2019 mammogram, and 06/12/2017 mammogram - [facility]. The tissue of left breast is heterogeneously dense. This may lower the sensitivity of mammography. There are grouped fine punctate calcifications in the left breast at 11 o'clock middle depth. These are not significantly changed. No other significant masses or calcifications are seen in the breast. IMPRESSION: PROBABLY BENIGN The grouped fine punctate calcifications in the left breast are probably benign. A follow-up mammogram in 6 months is recommended to demonstrate stability. Patient will also be due for her annual screening right breast mammogram at that time. This exam was interpreted at Station ID: [id number]. NOTE: For mammograms, a report in lay terms will be sent to the patient. Approximately 15% of breast malignancies will not be visualized mammographically. In the management of a palpable breast mass, a negative mammogram must not discourage biopsy of a clinically suspicious lesion. Electronically Signed By: Ted Gonzalez M.D. aty/:02/21/2020 13:15:33 letter sent: Followup Recommended ACR BI-RADS Category 3: Probably benign [id number]
== END ==
PROVIDERS: PCP Student in an Organized Health Care Education/Training Program; Referring Provider Student in an Organized Health Care Education/Training Program; Visit Provider Student in an Organized Health Care Education/Training Program
DX: R92.8 Other abnormal and inconclusive findings on diagnostic imaging of breast (principal); R92.1 Mammographic calcification found on diagnostic imaging of breast
CPT/HCPCS: 77065; G0279

== ENCOUNTER → 2020-04-16 11:35 | Outpatient (CLI) | payer OTHER, SELFPAY ==
--- NOTE | 2020-04-16 11:38 | DI.MRI.S_ITS ---
PROCEDURE: MR CERVICAL SPINE WO CON INDICATIONS: cervicogenic h/a, arm parasthesia, h/o arachnoid cyst TECHNIQUE: Noncontrast sagittal T1 spin echo and T2 fast spin echo, sagittal STIR, foraminal oblique sagittal T2 fast spin echo, and axial gradient echo or T2 fast spin echo through the cervical spine. COMPARISON: [facility], MR, MR CERVICAL SPINE WITHOUT CONTRAST, 11/13/2017, 13:13. FINDINGS: Image quality: Excellent. Alignment and Curvature: There is normal bony alignment. Bone Marrow: Marrow demonstrates normal overall signal. Spinal Cord: Visualized spinal cord has normal size and signal. No cerebellar tonsillar herniation. Paraspinous Soft Tissues: No paravertebral masses. Prevertebral soft tissues are normal in thickness. C2-C3: No significant degenerative change. C3-C4: Minimal degenerative disc disease changes but there is asymmetric left greater than right facet osteoarthritis with mild right and [id number] left foraminal stenosis but no spinal stenosis. This has slightly worsened from the prior study in October of 2017. C4-C5: The degenerative disc disease at this level is slight, but facet osteoarthritis is appreciably greater on the left than the right with secondary near severe foraminal stenosis on the left but only mild foraminal stenosis on the right. This pattern also has slightly worsened from the comparison study in October of 2017. C5-C6: Mild degenerative disc disease, slight posterior disc bulge without spinal stenosis. Asymmetric left greater than right facet osteoarthritis is also seen at this level with near severe left and [id number] right foraminal stenosis. C6-C7: Moderate degenerative disc disease, small posterior disc bulge which combines with facet hyperostosis and slight retrolisthesis of C6 on C7 to produce mild spinal stenosis, mild flattening of the anterior thecal sac and facet osteoarthritis produces moderate symmetric bilateral foraminal stenosis. C7-T1: Motion artifact significantly degrades quality of visualization on the axial imaging but on the sagittal imaging only minimal degenerative change could be seen.. IMPRESSION: Overall there has been a mild but definite worsening of degenerative changes along the cervical canal with comparison to October 2017. This is predominantly comprised of left greater than right facet osteoarthritis with hyperostosis and resulted asymmetric foraminal stenosis along the cervical spine as noted, left greater than right. No disc herniation found. Mild spinal stenosis noted as discussed at C6-7. Dictated by: Cecil Aleman M.D. on 04/16/2020 at 17:28 Approved by: Cecil Aleman M.D. on 04/16/2020 at 17:36
--- NOTE | 2020-04-16 11:38 | DI.MRI.S_ITS ---
PROCEDURE: MR LUMBAR SPINE WO CON INDICATIONS: cervicogenic h/a, arm parasthesia, h/o arachnoid cyst TECHNIQUE: Noncontrast sagittal T1 spin echo and T2 fast echo, sagittal STIR, axial T1 and T2 fast spin echo through the lumbar spine. In cases with scoliosis, additional coronal T2 fast spin echo may be performed. COMPARISON: [facility], MR, L-SPINE WITHOUT CONTRAST, 12/03/2010, 17:10. [facility], MR, L-SPINE WITHOUT CONTRAST, 02/08/2009, 17:48. FINDINGS: Image quality: Excellent. Alignment and Curvature: There is normal bony alignment. Bone Marrow: Marrow is of normal overall signal. No acute vertebral body compression fractures. Spinal Cord: Conus medullaris terminates at the L1 level. Visualized cord demonstrates normal signal and size. Paraspinous Soft Tissues: No paravertebral masses. L1-L2: Normal appearance. L2-L3: Normal appearance. L3-L4: Normal appearance except for slight facet hyperostosis. . L4-L5: Normal appearance except for mild facet hyperostosis without foraminal stenosis.. L5-S1: Normal appearance except for mild facet osteoarthritis and hyperostosis, without spinal or foraminal stenosis.. IMPRESSION: Mild degenerative changes along the facet joints are present but no degenerative disc disease or disc bulge or herniation is seen. Throughout the lumbosacral spine no spinal or foraminal stenosis is suspected. Dictated by: Cecil Aleman M.D. on 04/16/2020 at 17:43 Approved by: Cecil Aleman M.D. on 04/16/2020 at 17:47
--- NOTE | 2020-04-16 11:38 | DI.MRI.S_ITS ---
PROCEDURE: MR THORACIC SPINE WO CON INDICATIONS: cervicogenic h/a, arm parasthesia, h/o arachnoid cyst at the T6-T7 level of the thoracic spine. TECHNIQUE: Noncontrast sagittal T1 spine echo and T2 fast spin echo, sagittal STIR, axial T1 and T2 fast spin echo through the thoracic spine. COMPARISON: [facility], MR, MR THORACIC SPINE WITHOUT CONTRAST, 11/13/2017, 13:40. [facility], MR, MR THORACIC SPINE WITHOUT CONTRAST, 11/24/2017, 13:43. [facility], MR, MR THORACIC SPINE WO CON, 09/02/2018, 17:53. FINDINGS: Image quality: Excellent. Alignment and Curvature: There is normal bony alignment. Bone Marrow: Marrow is of normal overall signal. No acute vertebral body compression fractures. Spinal Cord: Visualized spinal cord is normal in size and signal. Again noted is a mild fusiform distortion of the dorsal aspect of the thoracic cord centered at the T6-T7 level of the thoracic spinal column. A discrete mass is not seen but the morphology of the thoracic cord in this area and the dorsal signal is suggestive of a thin-walled arachnoid cyst as the underlying cause. No worsening from this study when compared to 09/02/18 and 11/24/17. Paraspinous Soft Tissues: No paravertebral masses. Miscellaneous: On axial images, central canal and foramina appear widely patent at all scanned levels. IMPRESSION: Stable appearance of dorsal presumed arachnoid cyst, thin walled, at the T6-T7 level of the thoracic spine causing a slight contour deviation anteriorly of the thoracic cord from its dorsal aspect. This has been present without change since at least October of 2017. Dictated by: Cecil Aleman M.D. on 04/16/2020 at 17:36 Approved by: Cecil Aleman M.D. on 04/16/2020 at 17:42
== END ==
PROVIDERS: PCP Student in an Organized Health Care Education/Training Program; Referring Provider Internal Medicine; Visit Provider Internal Medicine
DX: R51 Headache (principal); R20.2 Paresthesia of skin; G96.19 Other disorders of meninges, not elsewhere classified; M50.321 Other cervical disc degeneration at C4-C5 level; M48.02 Spinal stenosis, cervical region; M47.812 Spondylosis without myelopathy or radiculopathy, cervical region; M47.816 Spondylosis without myelopathy or radiculopathy, lumbar region
CPT/HCPCS: 72141; 72146; 72148

== ENCOUNTER → 2020-10-11 08:37 | Outpatient (CLI) | payer OTHER, SELFPAY ==
--- NOTE | 2020-10-11 08:41 | DI.MG.S_ITS ---
BILATERAL DIGITAL DIAGNOSTIC MAMMOGRAM 3D/2D SHORT-TERM FOLLOW-UP: 10/11/2020 CLINICAL: Short term follow up of the left breast, due for bilateral imaging. Comparison is made to exams dated: 02/21/2020 mammogram, 06/02/2019 mammogram, and 05/20/2019 mammogram - [facility]. The tissue of both breasts is heterogeneously dense. This may lower the sensitivity of mammography. There are grouped fine punctate calcifications in the left breast at 10 o'clock middle depth. These are not significantly changed. No other significant masses, calcifications, or other findings are seen in either breast. IMPRESSION: PROBABLY BENIGN The grouped fine punctate calcifications in the left breast are probably benign. A follow-up mammogram in 6 months is recommended to demonstrate stability; April 2021 will be 2 years from initial finding of microcalcifications. This exam was interpreted at Station ID: [id number]. NOTE: For mammograms, a report in lay terms will be sent to the patient. Approximately 15% of breast malignancies will not be visualized mammographically. In the management of a palpable breast mass, a negative mammogram must not discourage biopsy of a clinically suspicious lesion. Electronically Signed By: Jerrell Suazo acr/:10/11/2020 09:26:33 letter sent: Followup Recommended ACR BI-RADS Category 3: Probably benign 3343F
== END ==
PROVIDERS: PCP Student in an Organized Health Care Education/Training Program; Referring Provider Student in an Organized Health Care Education/Training Program; Visit Provider Student in an Organized Health Care Education/Training Program
DX: R92.8 Other abnormal and inconclusive findings on diagnostic imaging of breast (principal); R92.1 Mammographic calcification found on diagnostic imaging of breast
CPT/HCPCS: 77066; G0279

== ENCOUNTER → 2020-11-29 08:26 | Outpatient (CLI) | payer OTHER, SELFPAY | PROVIDERS: PCP Student in an Organized Health Care Education/Training Program; Referring Provider Student in an Organized Health Care Education/Training Program; Visit Provider Student in an Organized Health Care Education/Training Program | DX: E03.9 Hypothyroidism, unspecified (principal) | CPT/HCPCS: 36415; 84443 ==

== ENCOUNTER → 2021-01-04 08:45 | Outpatient (CLI) | payer OTHER, SELFPAY ==
[2021-01-04] MEDS: COVID-19 VACC, Ad26(JANSSEN)/PF 0.5 ML IM (08:51)
== END ==
PROVIDERS: PCP Student in an Organized Health Care Education/Training Program; Visit Provider Internal Medicine
DX: Z23 Encounter for immunization (principal)
CPT/HCPCS: 0031A; 91303

== ENCOUNTER → 2021-05-24 08:55 | Outpatient (CLI) | payer OTHER, SELFPAY ==
--- NOTE | 2021-05-24 08:56 | DI.MG.S_ITS ---
UNILATERAL LEFT DIGITAL DIAGNOSTIC MAMMOGRAM 3D/2D SHORT-TERM FOLLOW-UP: 05/24/2021 CLINICAL: Short term follow up for the left breast. Comparison is made to exams dated: 10/11/2020 mammogram, 02/21/2020 mammogram, 06/02/2019 mammogram, and 05/20/2019 mammogram - [facility]. The tissue of left breast is heterogeneously dense. This may lower the sensitivity of mammography. There are stable grouped fine punctate calcifications in the left breast at 10 o'clock middle depth. This finding has demonstrated two years of stability and is consistent with a benign process. No other significant masses or calcifications are seen in the breast. IMPRESSION: BENIGN There is no mammographic evidence of malignancy. Return to annual mammogram screening schedule is recommended. Due in approximately 6 months Findings and recommendations were conveyed to the patient during today's evaluation. This exam was interpreted at Station ID: [id number]. NOTE: For mammograms, a report in lay terms will be sent to the patient. Approximately 15% of breast malignancies will not be visualized mammographically. In the management of a palpable breast mass, a negative mammogram must not discourage biopsy of a clinically suspicious lesion. Electronically Signed By: Ted Gonzalez M.D. aty/:05/24/2021 09:34:49 letter sent: Normal Exam ACR BI-RADS Category 2: Benign Finding(s) 3342F
== END ==
PROVIDERS: PCP Student in an Organized Health Care Education/Training Program; Referring Provider Student in an Organized Health Care Education/Training Program; Visit Provider Student in an Organized Health Care Education/Training Program
DX: R92.8 Other abnormal and inconclusive findings on diagnostic imaging of breast (principal); R92.1 Mammographic calcification found on diagnostic imaging of breast
CPT/HCPCS: 77065; G0279

== ENCOUNTER → 2021-06-12 08:05 | Outpatient (CLI) | payer OTHER, SELFPAY ==
--- NOTE | 2021-06-12 08:07 | DI.MRI.S_ITS ---
PROCEDURE: MR CERVICAL SPINE WO CON INDICATIONS: Neck pain with new left arm parasthesia TECHNIQUE: Noncontrast sagittal T1 spin echo and T2 fast spin echo, sagittal STIR, foraminal oblique sagittal T2 fast spin echo, and axial gradient echo or T2 fast spin echo through the cervical spine. COMPARISON: [facility], MR, MR CERVICAL SPINE WITHOUT CONTRAST, 11/13/2017, 13:13. [facility], MR, MR CERVICAL SPINE WO CON, 04/16/2020, 11:48. FINDINGS: Image quality: This examination is limited by involuntary motion artifact. Alignment and Curvature: There is straightening of the normal cervical lordosis. Minimal anterolisthesis is seen at the C5-C6 level. Bone Marrow: Marrow demonstrates normal overall signal. Spinal Cord: Visualized spinal cord has normal size and signal. No cerebellar tonsillar herniation. Paraspinous Soft Tissues: No paravertebral masses. Prevertebral soft tissues are normal in thickness. C2-C3: Level within normal limits. C3-C4: The disc height is well-preserved. Loss of disc signal is seen at this level. A mild degree of generalized disc osteophyte complex is seen. There is at least moderate right-sided and moderate left-sided facet hypertrophy seen. There is at least moderate right-sided and mild left-sided neural foraminal narrowing seen. No significant central canal narrowing is seen. When comparison is made with the prior images, these findings are similar. C4-C5: The disc height is well-preserved. Loss of disc signal is seen at this level. A mild degree of generalized disc osteophyte complex is seen. There is [id number] right-sided and prominent left-sided facet hypertrophy seen. There is moderate to severe left-sided and moderate right-sided neural foraminal narrowing seen. Mild central canal narrowing is seen. No significant change from the prior. C5-C6: The disc height is well-preserved. Loss of disc signal is seen at this level. A mild degree of generalized disc osteophyte complex is seen. There is mild right-sided and at least moderate left-sided facet hypertrophy seen. There is moderate to severe left-sided and minimal right-sided neural foraminal narrowing seen. No significant central canal narrowing is seen. No significant change from the prior. C6-C7: Mild loss of disc height is seen. Loss of disc signal is seen. At least moderate disc osteophyte complex is seen, which is eccentric to the right. Mild to moderate facet hypertrophy is seen. There is moderate to severe bilateral neural foraminal narrowing seen, right worse than left. At least moderate central canal narrowing is seen. There is associated mass effect upon the ventral spinal cord. When comparison is made with the prior images, these findings are similar. C7-T1: The disc height and disk signal are well-preserved. A mild degree of generalized disc osteophyte complex is seen. Mild facet joint hypertrophy is seen. There is moderate right-sided and no significant left-sided neural foraminal narrowing seen. No significant central canal narrowing can be seen. When comparison is made with the prior images, these findings are similar. IMPRESSION: Multiple levels of cervical spine degenerative change are seen, which are worst at the C5-C6 level. The degenerative changes are similar to 2020. Dictated by: Ralph Adams M.D. on 06/12/2021 at 8:48 Approved by: Ralph Adams M.D. on 06/12/2021 at 8:53
== END ==
PROVIDERS: PCP Student in an Organized Health Care Education/Training Program; Referring Provider Student in an Organized Health Care Education/Training Program; Visit Provider Student in an Organized Health Care Education/Training Program
DX: M47.22 Other spondylosis with radiculopathy, cervical region (principal)
CPT/HCPCS: 72141

== ENCOUNTER → 2022-03-07 07:37 | Outpatient (CLI) | payer OTHER, SELFPAY ==
--- NOTE | 2022-03-07 07:40 | DI.RAD.S_ITS ---
PROCEDURE: XR FOOT RT 2V INDICATIONS: Heel pain TECHNIQUE: 2 views of the foot were acquired. COMPARISON: [facility], CR, FOOT 3V LEFT, 06/15/2013, 15:53. FINDINGS: Bones: No fractures or dislocations. No suspicious bony lesions. Well-defined plantar calcaneal enthesophyte is seen. Soft tissues: No tibiotalar joint effusion. Achilles tendon appears normal. IMPRESSION: Well-defined plantar calcaneal enthesophyte. No gross plantar soft tissue abnormality is seen. If indicated, MRI of hindfoot can be done for evaluation of plantar fasciitis. Dictated by: Caleb Katz M.D. on 03/07/2022 at 8:37 Approved by: Caleb Katz M.D. on 03/07/2022 at 8:37
[2022-03-07 10:41] LABS: BUN Creatinine Ratio 12.4 (6-22); Blood Urea Nitrogen 11 mg/dL (7-17); Calcium 8.9 mg/dL (8.4-10.2); Carbon Dioxide 27 mmol/L (22-32); Chloride 101 mmol/L (98-107); Estimated Glomerular Filt Rate > 60 mL/min (>60); Glucose 98 mg/dL (70-100); HEMOLYSIS 32 (0-50); Potassium 4.1 mmol/L (3.4-5.1); Sodium 137 mmol/L (137-145)
[2022-03-07 11:01] LABS: TSH w/ Reflex to FT4 1.46 uIU/mL (0.47-4.68)
== END ==
PROVIDERS: PCP Student in an Organized Health Care Education/Training Program; Referring Provider Student in an Organized Health Care Education/Training Program; Visit Provider Student in an Organized Health Care Education/Training Program
DX: M79.671 Pain in right foot; E03.9 Hypothyroidism, unspecified; M77.31 Calcaneal spur, right foot; Z79.899 Other long term (current) drug therapy
CPT/HCPCS: 36415; 73620; 80048; 84443

== ENCOUNTER → 2022-05-17 07:54 | Outpatient (CLI) | payer OTHER, SELFPAY ==
--- NOTE | 2022-05-17 07:56 | DI.MRI.S_ITS ---
PROCEDURE: MR LUMBAR SPINE WO CON INDICATIONS: Radiculopathy, lumbar region TECHNIQUE: Noncontrast sagittal T1 spin echo and T2 fast echo, sagittal STIR, and T2 fast spin echo through the lumbar spine. In cases with scoliosis, additional coronal T2 fast spin echo may be performed. COMPARISON: [facility], MR, L-SPINE WITHOUT CONTRAST, 12/03/2010, 17:10. FINDINGS: Image quality: Excellent. Alignment and Curvature: There is normal bony alignment. Bone Marrow: Marrow is of normal overall signal. No acute vertebral body compression fractures. Stable benign vertebral body hemangiomas again noted Spinal Cord: Conus medullaris terminates at the L1 level. Visualized cord demonstrates normal signal and size. Paraspinous Soft Tissues: No paravertebral masses. T12-L1: Normal appearance. L1-L2: Normal appearance. L2-L3: Normal appearance. L3-L4: Normal appearance. L4-L5: Normal appearance. L5-S1: Normal appearance. IMPRESSION: Normal MR of the lumbar spine, stable from priors Approved by: Tacho Delaney M.D. on 05/17/2022 at 16:06
== END ==
PROVIDERS: PCP Student in an Organized Health Care Education/Training Program; Referring Provider Physical Medicine & Rehabilitation; Visit Provider Physical Medicine & Rehabilitation
DX: M54.16 Radiculopathy, lumbar region (principal)
CPT/HCPCS: 72148

== ENCOUNTER → 2022-05-21 07:46 | Outpatient (CLI) | payer OTHER, SELFPAY ==
--- NOTE | 2022-05-21 07:48 | DI.MG.S_ITS ---
BILATERAL DIGITAL SCREENING MAMMOGRAM 3D/2D WITH CAD: 05/21/2022 CLINICAL: Routine screening. Comparison is made to exams dated: 05/24/2021 mammogram, 10/11/2020 mammogram, 05/20/2019 mammogram, 06/12/2017 mammogram, 11/08/2010 mammogram, and 02/21/2020 mammogram - [facility]. Both breasts are heterogeneously dense, which may obscure small masses (category c / 51-75% glandular tissue). Current study was also evaluated with a Computer Aided Detection (CAD) system. No significant masses, calcifications, or other findings are seen in either breast. There has been no significant interval change. IMPRESSION: NEGATIVE There is no mammographic evidence of malignancy. A 1 year screening mammogram is recommended. Based on the Tyrer Cuzick model (a risk assessment model) the patient's lifetime risk is 9.1% and her 10 year risk is 2.3%. According to the ACR, ACS, and NCCN guidelines, an annual breast MRI exam along with mammogram is recommended if the patient's lifetime risk is 20% or greater. This exam was interpreted at Station ID: [id number]. NOTE: For mammograms, a report in lay terms will be sent to the patient. Approximately 15% of breast malignancies will not be visualized mammographically. In the management of a palpable breast mass, a negative mammogram must not discourage biopsy of a clinically suspicious lesion. Electronically Signed By: Alvaro duvall/ileana:05/21/2022 09:46:15 letter sent: Normal Exam ACR BI-RADS Category 1: Negative 3341F
== END ==
PROVIDERS: PCP Student in an Organized Health Care Education/Training Program; Referring Provider Student in an Organized Health Care Education/Training Program; Visit Provider Student in an Organized Health Care Education/Training Program
DX: Z12.31 Encounter for screening mammogram for malignant neoplasm of breast (principal)
CPT/HCPCS: 77063; 77067

== ENCOUNTER → 2023-03-30 09:59 | Outpatient (CLI) | payer MEDICARE, OTHER, SELFPAY ==
--- NOTE | 2023-03-30 10:07 | DI.RAD.S_ITS ---
PROCEDURE: XR KUB INDICATIONS: stool burden with chronic diarrhea vs constipation TECHNIQUE: One view of the abdomen acquired. COMPARISON: None. FINDINGS: No pathologically dilated gas-filled loops of bowel. Large amount of stool is present in the colon. IMPRESSION: Large amount of stool present in the colon. Dictated by: Diaz Lacey M.D. on 03/30/2023 at 14:59 Approved by: Diaz Lacey M.D. on 03/30/2023 at 15:03
[2023-03-30 11:22] LABS: Appearance Urine UA CLEAR; Bilirubin Urine UA NEGATIVE (NEGATIVE); Color Urine UA YELLOW; Glucose Urine UA NEGATIVE (Negative); Ketones Urine UA NEGATIVE (NEGATIVE); Leukocyte Esterase Urine UA NEGATIVE (NEGATIVE); Nitrite Urine UA NEGATIVE (Negative); Occult Blood Urine UA TRACE-INTACT (Negative); Protein Urine UA NEGATIVE (Negative); Specific Gravity Urine UA <=1.005 (1.000-1.035); Urobilinogen Urine UA 0.2 E.U./dL (0.2)
[2023-03-30 11:38] LABS: Bacteria Urine None Seen; Culture Indicated Urine Cult Not Indicated; RBC Urine None Seen (0-5/HPF); Squamous Epithelial Cell Urine None Seen (0-5/HPF); WBC Urine None Seen (0-5/HPF)
[2023-03-30 11:39] LABS: Add Manual Diff / Slide Review NO; Basophils Absolute Auto 0 /uL (0-100); Basophils Percent Auto 0.6 % (0-2); Eosinophils Absolute Auto 100 /uL (0-450); Eosinophils Percent Auto 3.4 % (2-4); Hematocrit 38.7 % (36-46); Hemoglobin 13.1 g/dL (12.0-16.0); Lymphocytes Absolute Auto 1500 /uL (1100-4500); Lymphocytes Percent Auto 33.9 % (25-40); Mean Corpuscular HGB Conc 33.9 % (30-36); Mean Corpuscular Hemoglobin 31.5 PG (26-34); Mean Corpuscular Volume 92.9 fL (80-100); Monocytes Absolute Auto 300 /uL (0-900); Monocytes Percent Auto 7.1 % (3-14); Neutrophils Absolute Auto 2400 /uL (1500-7000); Platelet Count 259 X10^3/uL (150-400); Red Blood Cell Count 4.17 X10^6/uL (4.0-5.2); Red Cell Distribution Width 13.1 % (11.6-14.8); White Blood Cell Count 4.3 X10^3/uL (4.5-11.0)
[2023-03-30 11:53] LABS: Erythrocyte Sedimentation Rate 13 MM/HR (0-20)
[2023-03-30 12:11] LABS: Alanine Aminotransferase 24 IU/L (<35); Albumin 4.2 g/dL (3.5-5.0); Albumin Globulin Ratio 1.2 (1.0-2.8); Alkaline Phosphatase 71 U/L (38-126); Aspartate Aminotransferase 25 IU/L (14-36); BUN Creatinine Ratio 12.5 (6-22); Bilirubin Total 0.4 mg/dL (0.2-1.3); Blood Urea Nitrogen 10 mg/dL (7-17); Calcium 9.1 mg/dL (8.4-10.2); Carbon Dioxide 28 mmol/L (22-32); Chloride 102 mmol/L (98-107); Cholesterol 246 mg/dL (140-199); Estimated Glomerular Filt Rate > 60 mL/min (>60); Globulin 3.5 g/dL (1.7-4.1); Glucose 98 mg/dL (70-100); HDL Cholesterol 58 mg/dL (40-60); HEMOLYSIS < 15 (0-50); LDL Cholesterol Calculated 151 mg/dL (<100); Potassium 4.3 mmol/L (3.4-5.1); Sodium 137 mmol/L (137-145); Total Protein 7.7 g/dL (6.3-8.2); Triglycerides 183 mg/dL (35-150)
[2023-03-30 12:29] LABS: Vitamin D 25 Hydroxy (D3) 68.2 ng/mL (30.0-100.0)
[2023-03-30 12:43] LABS: TSH w/ Reflex to FT4 2.16 uIU/mL (0.47-4.68)
== END ==
PROVIDERS: PCP Pediatrics; Referring Provider Pediatrics; Visit Provider Pediatrics
DX: E66.9 Obesity, unspecified (principal); F41.1 Generalized anxiety disorder; K58.9 Irritable bowel syndrome, unspecified; M47.813 Spondylosis without myelopathy or radiculopathy, cervicothoracic region
CPT/HCPCS: 36415; 74018; 80053; 80061; 81001; 82306; 84443; 85025; 85651

== ENCOUNTER → 2023-07-11 14:28 | Outpatient (CLI) | payer MEDICARE, OTHER, SELFPAY ==
--- NOTE | 2023-07-11 14:34 | DI.MG.S_ITS ---
BILATERAL DIGITAL SCREENING MAMMOGRAM 3D/2D WITH CAD: 07/11/2023 CLINICAL: Routine screening. Comparison is made to exams dated: 05/21/2022 mammogram, 05/24/2021 mammogram, 10/11/2020 mammogram, 02/21/2020 mammogram, 06/02/2019 mammogram, and 05/20/2019 mammogram - [facility]. Both breasts are heterogeneously dense, which may obscure small masses (category c / 51-75% glandular tissue). Current study was also evaluated with a Computer Aided Detection (CAD) system. No significant masses, calcifications, or other findings are seen in either breast. There has been no significant interval change. IMPRESSION: NEGATIVE There is no mammographic evidence of malignancy. A 1 year screening mammogram is recommended. Based on the Tyrer Cuzick model (a risk assessment model) the patient's lifetime risk is 9.2% and her 10 year risk is 2.5%. According to the ACR, ACS, and NCCN guidelines, an annual breast MRI exam along with mammogram is recommended if the patient's lifetime risk is 20% or greater. This exam was interpreted at Station ID: [id number]. NOTE: For mammograms, a report in lay terms will be sent to the patient. Approximately 15% of breast malignancies will not be visualized mammographically. In the management of a palpable breast mass, a negative mammogram must not discourage biopsy of a clinically suspicious lesion. Electronically Signed By: Ted camacho/ileana:07/12/2023 21:47:22 letter sent: Normal Exam ACR BI-RADS Category 1: Negative 3341F
== END ==
PROVIDERS: PCP Pediatrics; Referring Provider Pediatrics; Visit Provider Pediatrics
DX: Z12.31 Encounter for screening mammogram for malignant neoplasm of breast (principal)
CPT/HCPCS: 77063; 77067

== ENCOUNTER → 2024-02-16 09:38 | Outpatient (CLI) | payer MEDICARE, OTHER, SELFPAY ==
--- NOTE | 2024-02-16 09:40 | DI.RAD.S_ITS ---
PROCEDURE: XR CHEST 2V INDICATIONS: cough TECHNIQUE: 2 views of the chest were acquired. COMPARISON: [facility], CR, XR CHEST 1V, 11/15/2018, 18:33. FINDINGS: Surgical changes and devices: None. Lungs and pleura: Lungs are clear. No pleural effusions or pneumothorax. Mediastinum: Mediastinal contours are normal. Heart size is normal. Bones and chest wall: No suspicious bony abnormalities. Soft tissues appear unremarkable. Mild multilevel degenerative changes of the spine. IMPRESSION: No acute cardiopulmonary process. Dictated by: Arielle Carter M.D. on 02/16/2024 at 17:08 Approved by: Arielle Carter M.D. on 02/16/2024 at 17:15
== END ==
PROVIDERS: PCP Family Medicine; Referring Provider Family Medicine; Visit Provider Family Medicine
DX: R05.9 Cough, unspecified (principal)
CPT/HCPCS: 71046

== ENCOUNTER → 2024-02-26 08:12 | Outpatient (CLI) | payer MEDICARE, OTHER, SELFPAY ==
--- NOTE | 2024-02-26 08:14 | DI.MRI.S_ITS ---
PROCEDURE: MR THORACIC SPINE WO CON INDICATIONS: 54-year-old female with intrathecal extramedullary dorsal arachnoid cyst with mass effect. Surveillance study. TECHNIQUE: Noncontrast sagittal T1 spine echo and T2 fast spin echo, sagittal STIR, and T2 fast spin echo through the thoracic spine. COMPARISON: [facility], , MR THORACIC SPINE WO CON, 04/16/2020, 12:06. FINDINGS: Alignment and Curvature: There is normal bony alignment. Bone Marrow: Stable degenerative endplate changes Spinal Cord: Again noted sequelae of probable dorsal intrathecal extramedullary arachnoid cyst at the T6-7 level, entirely unchanged. There is flattening of the dorsal surface of the cord without cord edema. Paraspinous Soft Tissues: No paravertebral masses. Miscellaneous: As above IMPRESSION: Stable dorsal intrathecal arachnoid cyst with mass effect. No change from the prior. No cord edema. Approved by: Tacho Delaney M.D. on 02/26/2024 at 12:17
== END ==
PROVIDERS: PCP Family Medicine; Referring Provider Family Medicine; Visit Provider Family Medicine
DX: G96.198 Other disorders of meninges, not elsewhere classified (principal); R29.898 Other symptoms and signs involving the musculoskeletal system
CPT/HCPCS: 72146

== ENCOUNTER → 2024-05-04 07:48 | Outpatient (CLI) | payer MEDICARE, OTHER, SELFPAY ==
[2024-05-04 09:20] LABS: Add Manual Diff / Slide Review NO; Basophils Absolute Auto 0 /uL (0-100); Basophils Percent Auto 0.1 % (0-2); Eosinophils Absolute Auto 0 /uL (0-450); Eosinophils Percent Auto 0.2 % (2-4); Hematocrit 41.4 % (36-46); Hemoglobin 13.8 g/dL (12.0-16.0); Lymphocytes Absolute Auto 1400 /uL (1100-4500); Mean Corpuscular HGB Conc 33.4 % (30-36); Mean Corpuscular Hemoglobin 31.3 PG (26-34); Mean Corpuscular Volume 93.7 fL (80-100); Monocytes Absolute Auto 200 /uL (0-900); Monocytes Percent Auto 3.9 % (3-14); Neutrophils Absolute Auto 4500 /uL (1500-7000); Neutrophils Percent Auto 72.8 % (50-75); Platelet Count 291 X10^3/uL (150-400); Red Blood Cell Count 4.42 X10^6/uL (4.0-5.2); Red Cell Distribution Width 13.8 % (11.6-14.8); White Blood Cell Count 6.2 X10^3/uL (4.5-11.0)
[2024-05-04 09:31] LABS: Alanine Aminotransferase 29 IU/L (<35); Albumin 4.3 g/dL (3.5-5.0); Albumin Globulin Ratio 1.5 (1.0-2.8); Alkaline Phosphatase 57 U/L (38-126); Aspartate Aminotransferase 22 IU/L (14-36); BUN Creatinine Ratio 13.9 (6-22); Bilirubin Total 0.4 mg/dL (0.2-1.3); Blood Urea Nitrogen 11 mg/dL (7-17); Calcium 9.4 mg/dL (8.4-10.2); Carbon Dioxide 29 mmol/L (22-32); Chloride 103 mmol/L (98-107); Cholesterol 214 mg/dL (140-199); Estimated Glomerular Filt Rate > 60 mL/min (>60); Globulin 2.8 g/dL (1.7-4.1); Glucose 113 mg/dL (70-100); HDL Cholesterol 60 mg/dL (40-60); HEMOLYSIS < 15 (0-50); LDL Cholesterol Calculated 133 mg/dL (<100); Potassium 4.1 mmol/L (3.4-5.1); Sodium 139 mmol/L (137-145); Total Protein 7.1 g/dL (6.3-8.2); Triglycerides 103 mg/dL (35-150)
[2024-05-04 10:18] LABS: Vitamin B12 Reflex MMA if <400 > 1000 pg/mL (239-931)
[2024-05-04 10:19] LABS: TSH w/ Reflex to FT4 0.39 uIU/mL (0.47-4.68)
[2024-05-04 10:55] LABS: Folate 10.9 ng/mL (2.76-20.0)
[2024-05-04 12:05] LABS: Free T4, Direct Thyroxine 1.23 ng/dL (0.78-2.19)
== END ==
PROVIDERS: PCP Family Medicine; Referring Provider Family Medicine; Visit Provider Family Medicine
DX: R79.89 Other specified abnormal findings of blood chemistry (principal); E78.00 Pure hypercholesterolemia, unspecified; E66.9 Obesity, unspecified; E03.9 Hypothyroidism, unspecified; J45.909 Unspecified asthma, uncomplicated; F11.20 Opioid dependence, uncomplicated; K58.9 Irritable bowel syndrome, unspecified; R73.03 Prediabetes; L28.1 Prurigo nodularis
CPT/HCPCS: 36415; 80053; 80061; 82607; 82746; 82784; 83516; 84439; 84443; 85025

== ENCOUNTER → 2024-06-09 15:57 | Outpatient (CLI) | payer MEDICARE, OTHER, SELFPAY ==
[2024-06-13 14:08] LABS: Fecal Immunochemical Test Negative (Negative)
== END ==
PROVIDERS: PCP Family Medicine; Referring Provider Family Medicine; Visit Provider Family Medicine
DX: K92.1 Melena (principal)
CPT/HCPCS: 82274

== ENCOUNTER → 2024-06-21 11:26 | Outpatient (CLI) | payer MEDICARE, OTHER, SELFPAY | PROVIDERS: PCP Family Medicine; Referring Provider Family Medicine; Visit Provider Family Medicine | DX: E03.9 Hypothyroidism, unspecified (principal) | CPT/HCPCS: 36415; 84443 ==

== ENCOUNTER → 2025-02-23 08:27 | Outpatient (CLI) | payer MEDICARE, OTHER, SELFPAY ==
[2025-02-23 09:58] LABS: Add Manual Diff / Slide Review NO; Basophils Absolute Auto 0 /uL (0-100); Basophils Percent Auto 0.6 % (0-2); Eosinophils Absolute Auto 100 /uL (0-450); Eosinophils Percent Auto 3.8 % (2-4); Hemoglobin 12.7 g/dL (12.0-16.0); Lymphocytes Absolute Auto 1200 /uL (1100-4500); Lymphocytes Percent Auto 31.5 % (25-40); Mean Corpuscular HGB Conc 33.5 % (30-36); Mean Corpuscular Hemoglobin 31.2 PG (26-34); Mean Corpuscular Volume 93.2 fL (80-100); Monocytes Absolute Auto 200 /uL (0-900); Monocytes Percent Auto 5.8 % (3-14); Neutrophils Absolute Auto 2200 /uL (1500-7000); Neutrophils Percent Auto 58.3 % (50-75); Platelet Count 262 X10^3/uL (150-400); Red Blood Cell Count 4.08 X10^6/uL (4.0-5.2); White Blood Cell Count 3.8 X10^3/uL (4.5-11.0)
[2025-02-23 10:31] LABS: Alanine Aminotransferase 21 IU/L (<35); Albumin 3.9 g/dL (3.5-5.0); Albumin Globulin Ratio 1.5 (1.0-2.8); Alkaline Phosphatase 56 U/L (38-126); Aspartate Aminotransferase 27 IU/L (14-36); BUN Creatinine Ratio 8.6 (6-22); Bilirubin Total 0.5 mg/dL (0.2-1.3); Blood Urea Nitrogen 7 mg/dL (7-17); Calcium 8.9 mg/dL (8.4-10.2); Carbon Dioxide 27 mmol/L (22-32); Chloride 104 mmol/L (98-107); Estimated Glomerular Filt Rate > 60 mL/min (>60); Globulin 2.6 g/dL (1.7-4.1); Glucose 128 mg/dL (70-99); HEMOLYSIS < 15 (0-50); Potassium 3.9 mmol/L (3.4-5.1); Sodium 138 mmol/L (137-145); Total Protein 6.5 g/dL (6.3-8.2)
== END ==
PROVIDERS: PCP Family Medicine; Referring Provider Physician Assistant; Visit Provider Physician Assistant
DX: L28.1 Prurigo nodularis (principal)
CPT/HCPCS: 36415; 80053; 85025

== ENCOUNTER → 2025-03-10 09:51 | Outpatient (CLI) | payer MEDICARE, OTHER, SELFPAY ==
[2025-03-10 10:30] LABS: Ur Creatinine Normal (Normal); Ur Specific Gravity Normal (Normal)
[2025-03-10 10:31] LABS: Urine Amphetamines Negative (Negative); Urine Barbiturates Negative (Negative); Urine Benzodiazepines Negative (Negative); Urine Cocaine Negative (Negative); Urine MDMA Negative (Negative); Urine Methadone Negative (Negative); Urine Opiates Positive (Negative); Urine Oxycodone Negative (Negative); Urine Phencyclidine Negative (Negative); Urine THC Positive (Negative); Urine Tricyclic Antidepressant Negative (Negative); Urine pH Normal (Normal)
== END ==
PROVIDERS: PCP Family Medicine; Referring Provider Family Medicine; Visit Provider Family Medicine
DX: F11.20 Opioid dependence, uncomplicated (principal); R73.03 Prediabetes; R29.898 Other symptoms and signs involving the musculoskeletal system; M47.813 Spondylosis without myelopathy or radiculopathy, cervicothoracic region; M54.12 Radiculopathy, cervical region; M79.7 Fibromyalgia; E66.01 Morbid (severe) obesity due to excess calories; F33.1 Major depressive disorder, recurrent, moderate; Z63.79 Other stressful life events affecting family and household; Z79.899 Other long term (current) drug therapy; Z79.890 Hormone replacement therapy
CPT/HCPCS: 80305; 83036

== ENCOUNTER → 2025-03-20 07:55 | Outpatient (CLI) | payer MEDICARE, OTHER, SELFPAY ==
--- NOTE | 2025-03-20 08:01 | DI.MG.S_ITS ---
MM screening mammo BI: 03/20/2025. BI-RADS: 1 CLINICAL: 55-year old female for bilateral screening mammogram. Tyrer-Cuzick lifetime risk of 10.3%. No personal or first-degree family history of breast cancer. History of ovarian cancer in one first-degree relative. PRIOR EXAMS 07/11/2023, 05/21/2022, 05/24/2021, 10/11/2020, MAMMOGRAPHY TECHNIQUE: 2D and 3D (tomosynthesis) digital mammographic views obtained, with additional images as needed for full coverage. Current study was also evaluated with a Computer Aided Detection (CAD) system. DENSITY C. The breasts are heterogeneously dense, which may obscure small masses. MAMMOGRAPHY FINDINGS Bilateral: No suspicious mass, asymmetry, microcalcification, or other abnormality seen. IMPRESSION: * No evidence of malignancy. RECOMMENDATIONS Bilateral * Annual screening mammography. OVERALL ASSESSMENT CATEGORY BI-RADS-1: Negative. The [employer] recommends annual screening mammography beginning at age 40 for women with average risk of breast cancer. ELECTRONICALLY SIGNED: Ted Gonzalez M.D. on 03/21/2025 at 08:44:54 AM PT Interpreting Station ID: [id number]
== END ==
LOC: MAMMO 07:56
PROVIDERS: PCP Family Medicine; Referring Provider Family Medicine; Visit Provider Family Medicine
DX: Z12.31 Encounter for screening mammogram for malignant neoplasm of breast (principal); Z80.41 Family history of malignant neoplasm of ovary; R92.333 Mammographic heterogeneous density, bilateral breasts
CPT/HCPCS: 77063; 77067

== ENCOUNTER → 2025-04-20 10:56 | Outpatient (CLI) | payer MEDICARE, OTHER, SELFPAY ==
[2025-04-20 13:24] LABS: Ferritin 32 ng/mL (11-264)
[2025-04-20 14:28] LABS: Vitamin D 25 Hydroxy (D3) 69.2 ng/mL (30.0-100.0)
== END ==
PROVIDERS: PCP Family Medicine; Referring Provider Family Medicine; Visit Provider Family Medicine
DX: L65.9 Nonscarring hair loss, unspecified (principal)
CPT/HCPCS: 36415; 82306; 82728

== ENCOUNTER → 2025-05-03 14:48 | Outpatient (CLI) | payer MEDICARE, OTHER, SELFPAY ==
[2025-05-03 15:39] LABS: Appearance Urine UA CLEAR; Bilirubin Urine UA NEGATIVE (NEGATIVE); Color Urine UA YELLOW; Glucose Urine UA NEGATIVE (Negative); Ketones Urine UA TRACE (NEGATIVE); Leukocyte Esterase Urine UA NEGATIVE (NEGATIVE); Nitrite Urine UA NEGATIVE (Negative); Occult Blood Urine UA NEGATIVE (Negative); Protein Urine UA NEGATIVE (Negative); Specific Gravity Urine UA 1.015 (1.000-1.035); Urobilinogen Urine UA 1.0 E.U./dL (0.2)
[2025-05-03 15:46] LABS: pH Urine UA 7.0 (4.5-8.0)
[2025-05-03 16:13] LABS: Culture Indicated Urine Cult Not Indicated
== END ==
PROVIDERS: PCP Family Medicine; Referring Provider Family Medicine; Visit Provider Family Medicine
DX: R30.0 Dysuria (principal)
CPT/HCPCS: 81001